=== PATIENT | female | born 1930 | race Caucasian/White ===

== ENCOUNTER → 2016-11-20 | Outpatient (CLI) | payer MEDICARE ==
[~2016-11-20] MED LIST: AC325T PO; ALEN70TA2 PO; ATN25T PO; ATN50T PO; ATOR10TA PO; ATOR10TA56 PO; BETA1TAB15 PO; CALC600T12 PO; CEFU500T34 PO; CHOL10002 PO; DIGO125T PO; LEVO50TA10 PO; LEVO50TA6 PO; MULT-35 PO; MULT-954 PO; OMEG1CAP PO; OMG1KC PO; SIMV20TA PO; SIMV5TAB51 PO; WARF5TAB PO; WRF2.5T PO; WRF5T PO
[2016-11-20 07:45] LABS: BASOPHILS % (AUTO) 1 % (0-2); EOSINOPHILS # (AUTO) 0.2 10^3uL; EOSINOPHILS % (AUTO) 3 % (0-4); LYMPHOCYTES # (AUTO) 2.1 X10^3; MEAN CORPUSCULAR HEMOGLOBIN 31.2 PG (26.0-34.0); MEAN CORPUSCULAR HGB CONC 32.3 g/dL (31.0-37.0); MEAN CORPUSCULAR VOLUME 97 FL (80-100); MEAN PLATELET VOLUME 9.3 FL (6.0-9.5); MONOCYTES # (AUTO) 0.4 X10^3; MONOCYTES % (AUTO) 5 % (3-11); NEUTROPHILS # (AUTO) 3.8 X10^3; NEUTROPHILS % (AUTO) 59 % (51-67); PLATELET COUNT 214 10^3uL (150-450); WHITE BLOOD COUNT 6.49 10^3uL (4.0-11.0)
[2016-11-20 08:20] LABS: ALBUMIN 4.1 g/dL (3.4-5.0); ANION GAP 13.8 MEQ/L (3-15); CALCULATED IONIZED CALCIUM 4.5 mg/dL (3.8-4.6); TOTAL PROTEIN 6.8 g/dL (6.4-8.5)
== END ==
LOC: LAB 07:30
PROVIDERS: ATTEND Internal Medicine
DX: Z00.00 Encounter for general adult medical examination without abnormal findings (principal); I10 Essential (primary) hypertension; E78.4 Other hyperlipidemia; E03.8 Other specified hypothyroidism; M81.0 Age-related osteoporosis without current pathological fracture; I48.2 Chronic atrial fibrillation
CPT/HCPCS: 36415; 80053; 80061; 80162; 84439; 84443; 85025; 85610

== ENCOUNTER → 2016-12-23 | Outpatient (CLI) | payer MEDICARE | LOC: LAB 08:23 | PROVIDERS: ATTEND Internal Medicine | DX: Z51.81 Encounter for therapeutic drug level monitoring (principal); Z79.01 Long term (current) use of anticoagulants | CPT/HCPCS: 36415; 85610 ==

== ENCOUNTER → 2017-01-22 | Outpatient (CLI) | payer MEDICARE | LOC: LAB 07:41 | PROVIDERS: ATTEND Internal Medicine | DX: Z51.81 Encounter for therapeutic drug level monitoring (principal); Z79.01 Long term (current) use of anticoagulants | CPT/HCPCS: 36415; 85610 ==

== ENCOUNTER → 2017-02-24 | Outpatient (CLI) | payer MEDICARE | LOC: LAB 07:34 | PROVIDERS: ATTEND Internal Medicine | DX: Z51.81 Encounter for therapeutic drug level monitoring (principal); Z79.01 Long term (current) use of anticoagulants | CPT/HCPCS: 36415; 85610 ==

== ENCOUNTER → 2017-03-27 | Outpatient (CLI) | payer MEDICARE | LOC: LAB 07:38 | PROVIDERS: ATTEND Internal Medicine | DX: Z51.81 Encounter for therapeutic drug level monitoring (principal); Z79.01 Long term (current) use of anticoagulants | CPT/HCPCS: 36415; 85610 ==